=== PATIENT | male | born 1960 ===

== ENCOUNTER 2018-03-15 11:25 | Inpatient (IN) | payer OTHER ==
[2018-03-15 11:40] VITALS: BMI 31.6
--- NOTE | 2018-03-15 12:21 | ED PDOC ---
HPI: Hypertension/Hypotension Time Seen by Provider: 03/15/18 11:46 Chief Complaint (Nursing): High Blood Pressure History Per: Patient, Other Associated Symptoms: Chest Pain (right sided x 1-2 months), Dyspnea Additional Complaint(s): This is a 57 yo male patient from the [facility] clinic who is sent here for evaluation of bradycardia that has been present for 1-2 months. He c/o of right sided chest pain for the same duration and has been working as usual without complaints. He has been referred to Dr. Charles' office for eval but he has not made it yet. Past Medical History Reviewed: Historical Data, Nursing Documentation, Vital Signs Vital Signs: Last Vital Signs Temp 98.7 F 03/15/18 11:39 Pulse 40 L 03/15/18 12:02 Resp 18 03/15/18 11:51 BP 154/91 H 03/15/18 12:02 Pulse Ox 95 03/15/18 11:51 - Medical History PMH: HTN, Hypercholesterolemia - Surgical History Surgical History: No Surg Hx - Family History Family History: States: No Known Family Hx - Living Arrangements Living Arrangements: With Family - Social History Current smoker - smoking cessation education provided: No Alcohol: Social Drugs: Denies - Home Medications Home Medications: Ambulatory Orders Medication Instructions Recorded Aspirin 03/15/18 Atorvastatin [Lipitor] 03/15/18 Chlorthalidone [Hygroton] 03/15/18 Enalapril Maleate [Vasotec] 03/15/18 - Allergies Allergies/Adverse Reactions: Allergies Allergy/AdvReac Type Severity Reaction Status Date / Time No Known Allergies Allergy Verified 03/15/18 11:51 Review of Systems ROS Statement: Except As Marked, All Systems Reviewed And Found Negative Constitutional: Negative for: Fever, Chills Cardiovascular: Positive for: Chest Pain. Negative for: Palpitations, Orthopnea , Paroxysmal Noc. Dyspnea, Edema, Light Headedness Respiratory: Negative for: Cough, Shortness of Breath Physical Exam - Reviewed Nursing Documentation Reviewed: Yes Vital Signs Reviewed: Yes - Physical Exam Appears: Positive for: Well, Non-toxic, No Acute Distress Head Exam: Positive for: ATRAUMATIC, NORMAL INSPECTION, NORMOCEPHALIC Skin: Positive for: Normal Color, Warm, DRY Eye Exam: Positive for: EOMI, Normal appearance, PERRL ENT: Positive for: Normal ENT Inspection Neck: Positive for: Normal, Painless ROM Cardiovascular/Chest: Positive for: Regular Rate, Rhythm Respiratory: Positive for: CNT, Normal Breath Sounds Gastrointestinal/Abdominal: Positive for: Normal Exam, Soft Back: Positive for: Normal Inspection Extremity: Positive for: Normal ROM Neurologic/Psych: Positive for: Alert, Oriented - Laboratory Results Result Diagrams: 03/15/18 13:00 03/15/18 13:00 - ECG ECG: Positive for: Viewed By Me ECG Rhythm: Positive for: Sinus Bradycardia. Negative for: 1st Degree Heart Block, 2nd Degree Heart Block Mobitz I, 2nd Degree Heart Block Mobitz II, 3rd Degree Heart Block O2 Sat by Pulse Oximetry: 95 (RA) Pulse Ox Interpretation: Normal Medical Decision Making Medical Decision Making: Time: 1216 Plan: -- EKG -- CMP -- Magnesium -- Phosphorus -- TSH -- Troponin I -- ED Urine Dipstick -- EKG ED -- CBC with differentials -- PTT -- Prothromin Time -- Chest XRay One View -- Glucose, POC Routine -- IV Insertion Time: 1256 CHEST X-RAY RESULTS FINDINGS: LUNGS: Clear. PLEURA: No pneumothorax or pleural fluid seen. CARDIOVASCULAR: Atherosclerotic aortic calcifications. Cardiomediastinal silhouette enlarged. OSSEOUS STRUCTURES: Degenerative changes. VISUALIZED UPPER ABDOMEN: Normal. OTHER FINDINGS: None. IMPRESSION: No active disease. Time: 1300 Plan: -- CMP -- Magnesium -- Phosphorus -- TSH -- Troponin -- CBC with differentials -- PTT -- Prothrombin Time -- Sodium Chloride IV 1000 mls/hr Scribe Attestation: Documented by Darcy Rasmussen, acting as a scribe for Dr. Kamari MD. Provider Scribe Attestation: All medical record entries made by the Scribe were at my direction and personally dictated by me. I have reviewed the chart and agree that the record accurately reflects my personal performance of the history, physical exam, medical decision making, and the department course for this patient. I have also personally directed, reviewed, and agree with the discharge instructions and disposition. 2.30p - patient has been persistently bradycardic. Since he has not been able to get to cardiology (Dr. Charles), will admit to medical service. Disposition - Clinical Impression Clinical Impression: Bradycardia, Chest pain - Patient ED Disposition Is Patient to be Admitted: Yes Doctor Will See Patient In The: Hospital - Disposition Disposition: Transfer of Care Disposition Time: 14:30 Condition: FAIR Instructions: Bradycardia, Chest Pain Forms: [facility] (German) - POA Present On Arrival: None
--- NOTE | 2018-03-15 12:57 | RAD ---
PROCEDURE: CHEST RADIOGRAPH, 1 VIEW HISTORY: cp COMPARISON: None available. FINDINGS: LUNGS: Clear. PLEURA: No pneumothorax or pleural fluid seen. CARDIOVASCULAR: Atherosclerotic aortic calcifications. Cardiomediastinal silhouette enlarged. OSSEOUS STRUCTURES: Degenerative changes. VISUALIZED UPPER ABDOMEN: Normal. OTHER FINDINGS: None. IMPRESSION: No active disease.
[2018-03-15] MEDS ORDERED: Sodium Chloride 0.9% 1,000 ML IV STA (13:03)
[2018-03-15 13:11] LABS: BASO % 0.4 % (0.0-2.0); EOS # 0.1 K/uL (0.0-0.7); EOS % 1.1 % (0.0-4.0); HEMOGLOBIN 13.7 g/dL (12.0-18.0); LYMPH # 2.2 K/uL (1.0-4.3); MEAN CELL VOLUME 88.5 fl (80.0-94.0); MEAN CORPUSCULAR HEMOGLOBIN 29.4 pg (27.0-31.0); MEAN CORPUSCULAR HGB CONC 33.2 g/dL (33.0-37.0); MEAN PLATELET VOLUME 8.6 fl (7.2-11.7); MONO # 0.4 K/uL (0.0-0.8); MONO % 8.1 % (0.0-10.0); NEUT % 42.4 % (50.0-75.0); NRBC % 0.1 % (0.0-0.0); RBC 4.67 Mil/uL (4.40-5.90); RED CELL DISTRIBUTION WIDTH 13.6 % (11.5-14.5); WHITE BLOOD COUNT 4.6 K/uL (4.8-10.8)
[2018-03-15 13:25] LABS: INR 1.1 (0.9-1.2); PARTIAL THROMBOPLASTIN TIME 30.8 Seconds (25.6-37.1); PROTHROMBIN TIME 12.6 Seconds (9.8-13.1)
[2018-03-15 13:26] LABS: ALB/GLOB RATIO 1.4 (1.0-2.1); ALBUMIN 4.4 g/dL (3.5-5.0); ALT/SGPT 40 U/L (21-72); AST/SGOT 28 U/L (17-59); BLOOD UREA NITROGEN 18 mg/dl (9-20); CALCIUM 9.4 mg/dL (8.4-10.2); GFR AFRICAN-AMERICAN > 60; GFR NON-AFRICAN AMERICAN > 60
--- NOTE | 2018-03-15 15:29 | CP.PCM.HP ---
History of Present Illness - History of Present Illness History of Present Illness: 57 yo male with history of HTN and HLD sent here for evaluation and management because of severe bradycardia associated with dizziness, generalized weakness and on and off left sided chest pain since 2 months ago. Patient was referred to Dr Charles (zipper repairer) who was not able to see him today so he was sent here. Present on Admission - Present on Admission Any Indicators Present on Admission: No History of DVT/PE: No History of Uncontrolled Diabetes: No Urinary Catheter: No Decubitus Ulcer Present: No Review of Systems - Review of Systems All systems: reviewed and no additional remarkable complaints except (aside from those mentioned above, 12 point system review were negative by me) Past Patient History - Tetanus Immunizations Tetanus Immunization: Unknown - Past Medical History & Family History Past Medical History?: Yes - Past Social History Smoking Status: Never Smoked Chewing Tobacco Use: No Cigar Use: No Alcohol: Social Drugs: Denies Home Situation {Lives}: With Family - CARDIAC Hx Hypercholesterolemia: Yes Hx Hypertension: Yes - PSYCHIATRIC Hx Substance Use: No - SURGICAL HISTORY Hx Surgeries: No - ANESTHESIA Hx Anesthesia: No Meds Allergies/Adverse Reactions: Allergies Allergy/AdvReac Type Severity Reaction Status Date / Time No Known Allergies Allergy Verified 03/15/18 11:51 Physical Exam - Constitutional Appears: No Acute Distress - Head Exam Head Exam: ATRAUMATIC - Eye Exam Eye Exam: absent: Scleral icterus - ENT Exam ENT Exam: Mucous Membranes Moist - Neck Exam Neck exam: Negative for: Meningismus - Respiratory Exam Respiratory Exam: Decreased Breath Sounds. absent: Prolonged Expiratory Phase, Rales, Rhonchi, Wheezes, Respiratory Distress - Cardiovascular Exam Cardiovascular Exam: Bradycardia. absent: Diastolic murmur, Systolic Murmur - GI/Abdominal Exam GI & Abdominal Exam: Soft. absent: Tenderness - Rectal Exam Rectal Exam: Deferred - Extremities Exam Extremities exam: Negative for: calf tenderness, pedal edema - Back Exam Back exam: NORMAL INSPECTION - Neurological Exam Neurological exam: Alert, Oriented x3 - Psychiatric Exam Psychiatric exam: Normal Affect - Skin Skin Exam: Dry, Intact Results - Vital Signs Recent Vital Signs: Last Vital Signs Temp 98.7 F 03/15/18 11:39 Pulse 38 L 03/15/18 13:45 Resp 18 03/15/18 13:45 BP 144/90 03/15/18 13:45 Pulse Ox 95 03/15/18 14:45 - Labs Result Diagrams: 03/15/18 13:00 03/15/18 13:00 Labs: Laboratory Results - last 24 hr 03/15/18 03/15/18 03/15/18 11:51 13:00 13:00 WBC 4.6 L RBC 4.67 Hgb 13.7 Hct 41.3 MCV 88.5 MCH 29.4 MCHC 33.2 RDW 13.6 Plt Count 232 MPV 8.6 Neut % (Auto) 42.4 L Lymph % (Auto) 48.0 H [place] % (Auto) 8.1 Eos % (Auto) 1.1 Baso % (Auto) 0.4 Neut # (Auto) 2.0 Lymph # (Auto) 2.2 [place] # (Auto) 0.4 Eos # (Auto) 0.1 Baso # (Auto) 0.0 PT INR APTT Sodium 143 Potassium 3.8 Chloride 102 Carbon Dioxide 29 Anion Gap 16 BUN 18 Creatinine 0.8 Est GFR ( Amer) > 60 Est GFR (Non-Af Amer) > 60 POC Glucose (mg/dL) 84 Random Glucose 82 Calcium 9.4 Phosphorus 3.1 Magnesium 2.0 Total Bilirubin 1.1 AST 28 ALT 40 Alkaline Phosphatase 66 Troponin I < 0.0120 Total Protein 7.4 Albumin 4.4 Globulin 3.0 Albumin/Globulin Ratio 1.4 TSH 3rd Generation 0.53 03/15/18 13:00 WBC RBC Hgb Hct MCV MCH MCHC RDW Plt Count MPV Neut % (Auto) Lymph % (Auto) [place] % (Auto) Eos % (Auto) Baso % (Auto) Neut # (Auto) Lymph # (Auto) [place] # (Auto) Eos # (Auto) Baso # (Auto) PT 12.6 INR 1.1 APTT 30.8 Sodium Potassium Chloride Carbon Dioxide Anion Gap BUN Creatinine Est GFR ( Amer) Est GFR (Non-Af Amer) POC Glucose (mg/dL) Random Glucose Calcium Phosphorus Magnesium Total Bilirubin AST ALT Alkaline Phosphatase Troponin I Total Protein Albumin Globulin Albumin/Globulin Ratio TSH 3rd Generation Assessment & Plan - Assessment and Plan (Free Text) Assessment: 57 yo male with history of HTN and HLD sent here for evaluation and management because of severe bradycardia associated with dizziness, generalized weakness and on and off left sided chest pain since 2 months ago. Patient was referred to Dr Charles (zipper repairer) who was not able to see him today so he was sent here. 1. Severe Bradycardia place on observation in telemetry serial Troponin and EKG ECHO cardiology consult with Dr Charles 2. HTN BP stable continue Vasotec 20mg PO daily 3. HLD lipid profile Lipitor 10mg PO daily 4. DVT prophylaxis Lovenox 40mg SC daily
--- NOTE | 2018-03-15 17:42 | CARD ---
APPROVED REPORT EKG Measurement Heart [id number] <Conclusion> Marked sinus bradycardia Nonspecific intraventricular block Abnormal ECG
[2018-03-16 03:26] LABS: LDL CHOLESTEROL 105 mg/dL (0-129)
[2018-03-16 06:45] LABS: BASO % 0.6 % (0.0-2.0); EOS # 0.1 K/uL (0.0-0.7); EOS % 1.7 % (0.0-4.0); HEMOGLOBIN 13.7 g/dL (12.0-18.0); LYMPH # 2.6 K/uL (1.0-4.3); LYMPH % 51.1 % (20.0-40.0); MEAN CELL VOLUME 89.3 fl (80.0-94.0); MEAN CORPUSCULAR HEMOGLOBIN 29.5 pg (27.0-31.0); MEAN CORPUSCULAR HGB CONC 33.1 g/dL (33.0-37.0); MEAN PLATELET VOLUME 8.4 fl (7.2-11.7); MONO # 0.4 K/uL (0.0-0.8); MONO % 8.5 % (0.0-10.0); NEUT # 1.9 K/uL (1.8-7.0); NEUT % 38.1 % (50.0-75.0); NRBC % 0.2 % (0.0-0.0); RBC 4.64 Mil/uL (4.40-5.90); RED CELL DISTRIBUTION WIDTH 14.1 % (11.5-14.5)
[2018-03-16 06:59] LABS: BLOOD UREA NITROGEN 23 mg/dl (9-20); CALCIUM 9.1 mg/dL (8.4-10.2); GFR AFRICAN-AMERICAN > 60; GFR NON-AFRICAN AMERICAN > 60; HDL CHOLESTEROL 36 MG/DL (30-70)
[2018-03-16] MEDS: Enoxaparin 40 mg Syringe SC SCH (08:22)
[2018-03-16] MEDS: Pantoprazole 40 mg EC Tab PO SCH (08:23)
--- NOTE | 2018-03-16 08:40 | CP.PCM.CON ---
Past Patient History - Tetanus Immunizations Tetanus Immunization: Unknown - Past Medical History & Family History Past Medical History?: Yes - Past Social History Smoking Status: Never Smoked - CARDIAC Hx Cardiac Disorders: Yes - PULMONARY Hx Respiratory Disorders: No - NEUROLOGICAL Hx Neurological Disorder: No - HEENT Hx HEENT Problems: No - RENAL Hx Chronic Kidney Disease: No - ENDOCRINE/METABOLIC Hx Endocrine Disorders: No - HEMATOLOGICAL/ONCOLOGICAL Hx Blood Disorders: No - INTEGUMENTARY Hx Dermatological Problems: No - MUSCULOSKELETAL/RHEUMATOLOGICAL Hx Musculoskeletal Disorders: No - GASTROINTESTINAL Hx Gastrointestinal Disorders: No - GENITOURINARY/GYNECOLOGICAL Hx Genitourinary Disorders: No - PSYCHIATRIC Hx Psychophysiologic Disorder: No - SURGICAL HISTORY Hx Surgeries: Yes Hx Tonsillectomy: Yes - ANESTHESIA Hx Anesthesia: No Meds Allergies/Adverse Reactions: Allergies Allergy/AdvReac Type Severity Reaction Status Date / Time No Known Allergies Allergy Verified 03/15/18 11:51 - Medications Medications: Current Medications Aspirin (Aspirin Chewable) 81 mg PO DAILY [facility] Last Admin: 03/16/18 08:21 Dose: 81 mg Atorvastatin Calcium (Lipitor) 10 mg PO DAILY [facility] Last Admin: 03/16/18 08:22 Dose: 10 mg Docusate Sodium (Colace) 100 mg PO BID PRN PRN Reason: Constipation Enalapril Maleate (Vasotec) 20 mg PO DAILY [facility] Last Admin: 03/16/18 08:23 Dose: 20 mg Enoxaparin Sodium (Lovenox) 40 mg SC DAILY [facility] PRN Reason: Protocol Last Admin: 03/16/18 08:22 Dose: 40 mg Pantoprazole Sodium (Protonix Ec Tab) 40 mg PO DAILY [facility] Last Admin: 03/16/18 08:23 Dose: 40 mg Results - Vital Signs Recent Vital Signs: Last Vital Signs Temp 97.9 F 03/16/18 08:32 Pulse 36 L 03/16/18 08:32 Resp 16 03/16/18 08:32 BP 142/73 03/16/18 08:32 Pulse Ox 97 03/16/18 08:32 - Labs Result Diagrams: 03/16/18 05:00 03/16/18 02:53 Labs: Laboratory Results - last 24 hr 03/15/18 03/15/18 03/15/18 11:51 13:00 13:00 WBC 4.6 L RBC 4.67 Hgb 13.7 Hct 41.3 MCV 88.5 MCH 29.4 MCHC 33.2 RDW 13.6 Plt Count 232 MPV 8.6 Neut % (Auto) 42.4 L Lymph % (Auto) 48.0 H [place] % (Auto) 8.1 Eos % (Auto) 1.1 Baso % (Auto) 0.4 Neut # (Auto) 2.0 Lymph # (Auto) 2.2 [place] # (Auto) 0.4 Eos # (Auto) 0.1 Baso # (Auto) 0.0 PT INR APTT Sodium 143 Potassium 3.8 Chloride 102 Carbon Dioxide 29 Anion Gap 16 BUN 18 Creatinine 0.8 Est GFR ( Amer) > 60 Est GFR (Non-Af Amer) > 60 POC Glucose (mg/dL) 84 Random Glucose 82 Calcium 9.4 Phosphorus 3.1 Magnesium 2.0 Total Bilirubin 1.1 AST 28 ALT 40 Alkaline Phosphatase 66 Troponin I < 0.0120 Total Protein 7.4 Albumin 4.4 Globulin 3.0 Albumin/Globulin Ratio 1.4 Triglycerides Cholesterol LDL Cholesterol Direct HDL Cholesterol TSH 3rd Generation 0.53 03/15/18 03/15/18 03/16/18 13:00 18:04 02:53 WBC RBC Hgb Hct MCV MCH MCHC RDW Plt Count MPV Neut % (Auto) Lymph % (Auto) [place] % (Auto) Eos % (Auto) Baso % (Auto) Neut # (Auto) Lymph # (Auto) [place] # (Auto) Eos # (Auto) Baso # (Auto) PT 12.6 INR 1.1 APTT 30.8 Sodium 139 Potassium 3.7 Chloride 101 Carbon Dioxide 26 Anion Gap 16 BUN 23 H Creatinine 0.9 Est GFR ( Amer) > 60 Est GFR (Non-Af Amer) > 60 POC Glucose (mg/dL) Random Glucose 109 Calcium 9.1 Phosphorus Magnesium Total Bilirubin AST ALT Alkaline Phosphatase Troponin I 0.0120 < 0.0120 Total Protein Albumin Globulin Albumin/Globulin Ratio Triglycerides 268 H Cholesterol 194 LDL Cholesterol Direct 105 HDL Cholesterol 36 TSH 3rd Generation 1.11 03/16/18 05:00 WBC 5.0 RBC 4.64 Hgb 13.7 Hct 41.5 MCV 89.3 MCH 29.5 MCHC 33.1 RDW 14.1 Plt Count 233 MPV 8.4 Neut % (Auto) 38.1 L Lymph % (Auto) 51.1 H [place] % (Auto) 8.5 Eos % (Auto) 1.7 Baso % (Auto) 0.6 Neut # (Auto) 1.9 Lymph # (Auto) 2.6 [place] # (Auto) 0.4 Eos # (Auto) 0.1 Baso # (Auto) 0.0 PT INR APTT Sodium Potassium Chloride Carbon Dioxide Anion Gap BUN Creatinine Est GFR ( Amer) Est GFR (Non-Af Amer) POC Glucose (mg/dL) Random Glucose Calcium Phosphorus Magnesium Total Bilirubin AST ALT Alkaline Phosphatase Troponin I Total Protein Albumin Globulin Albumin/Globulin Ratio Triglycerides Cholesterol LDL Cholesterol Direct HDL Cholesterol TSH 3rd Generation
--- NOTE | 2018-03-16 08:40 | CP.PCM.CON ---
History of Present Illness - History of Present Illness History of Present Illness: patient seen examined. full consutl to follow. has dizziness and dsypnea on exertion, along with chest pain. was getting echocardiogram yesterday and became lighheaded. heart rate in the 30s. currently no symptoms at rest, but has exertional symptoms. EF 50-55%. Recommend nuclear exercise stress test to assess for ischemia. TSH. If no ischemia, consider EP eval for PPM due to symptomatic bradycardia. Past Patient History - Tetanus Immunizations Tetanus Immunization: Unknown - Past Medical History & Family History Past Medical History?: Yes - Past Social History Smoking Status: Never Smoked - CARDIAC Hx Cardiac Disorders: Yes - PULMONARY Hx Respiratory Disorders: No - NEUROLOGICAL Hx Neurological Disorder: No - HEENT Hx HEENT Problems: No - RENAL Hx Chronic Kidney Disease: No - ENDOCRINE/METABOLIC Hx Endocrine Disorders: No - HEMATOLOGICAL/ONCOLOGICAL Hx Blood Disorders: No - INTEGUMENTARY Hx Dermatological Problems: No - MUSCULOSKELETAL/RHEUMATOLOGICAL Hx Musculoskeletal Disorders: No - GASTROINTESTINAL Hx Gastrointestinal Disorders: No - GENITOURINARY/GYNECOLOGICAL Hx Genitourinary Disorders: No - PSYCHIATRIC Hx Psychophysiologic Disorder: No - SURGICAL HISTORY Hx Surgeries: Yes Hx Tonsillectomy: Yes - ANESTHESIA Hx Anesthesia: No Meds Allergies/Adverse Reactions: Allergies Allergy/AdvReac Type Severity Reaction Status Date / Time No Known Allergies Allergy Verified 03/15/18 11:51 - Medications Medications: Current Medications Aspirin (Aspirin Chewable) 81 mg PO DAILY [facility] Last Admin: 03/16/18 08:21 Dose: 81 mg Atorvastatin Calcium (Lipitor) 10 mg PO DAILY [facility] Last Admin: 03/16/18 08:22 Dose: 10 mg Docusate Sodium (Colace) 100 mg PO BID PRN PRN Reason: Constipation Enalapril Maleate (Vasotec) 20 mg PO DAILY [facility] Last Admin: 03/16/18 08:23 Dose: 20 mg Enoxaparin Sodium (Lovenox) 40 mg SC DAILY [facility] PRN Reason: Protocol Last Admin: 03/16/18 08:22 Dose: 40 mg Pantoprazole Sodium (Protonix Ec Tab) 40 mg PO DAILY [facility] Last Admin: 03/16/18 08:23 Dose: 40 mg Results - Vital Signs Recent Vital Signs: Last Vital Signs Temp 97.9 F 03/16/18 08:32 Pulse 36 L 03/16/18 08:32 Resp 16 03/16/18 08:32 BP 142/73 03/16/18 08:32 Pulse Ox 97 03/16/18 08:32 - Labs Result Diagrams: 03/16/18 05:00 03/16/18 02:53 Labs: Laboratory Results - last 24 hr 03/15/18 03/15/18 03/15/18 11:51 13:00 13:00 WBC 4.6 L RBC 4.67 Hgb 13.7 Hct 41.3 MCV 88.5 MCH 29.4 MCHC 33.2 RDW 13.6 Plt Count 232 MPV 8.6 Neut % (Auto) 42.4 L Lymph % (Auto) 48.0 H [place] % (Auto) 8.1 Eos % (Auto) 1.1 Baso % (Auto) 0.4 Neut # (Auto) 2.0 Lymph # (Auto) 2.2 [place] # (Auto) 0.4 Eos # (Auto) 0.1 Baso # (Auto) 0.0 PT INR APTT Sodium 143 Potassium 3.8 Chloride 102 Carbon Dioxide 29 Anion Gap 16 BUN 18 Creatinine 0.8 Est GFR ( Amer) > 60 Est GFR (Non-Af Amer) > 60 POC Glucose (mg/dL) 84 Random Glucose 82 Calcium 9.4 Phosphorus 3.1 Magnesium 2.0 Total Bilirubin 1.1 AST 28 ALT 40 Alkaline Phosphatase 66 Troponin I < 0.0120 Total Protein 7.4 Albumin 4.4 Globulin 3.0 Albumin/Globulin Ratio 1.4 Triglycerides Cholesterol LDL Cholesterol Direct HDL Cholesterol TSH 3rd Generation 0.53 03/15/18 03/15/18 03/16/18 13:00 18:04 02:53 WBC RBC Hgb Hct MCV MCH MCHC RDW Plt Count MPV Neut % (Auto) Lymph % (Auto) [place] % (Auto) Eos % (Auto) Baso % (Auto) Neut # (Auto) Lymph # (Auto) [place] # (Auto) Eos # (Auto) Baso # (Auto) PT 12.6 INR 1.1 APTT 30.8 Sodium 139 Potassium 3.7 Chloride 101 Carbon Dioxide 26 Anion Gap 16 BUN 23 H Creatinine 0.9 Est GFR ( Amer) > 60 Est GFR (Non-Af Amer) > 60 POC Glucose (mg/dL) Random Glucose 109 Calcium 9.1 Phosphorus Magnesium Total Bilirubin AST ALT Alkaline Phosphatase Troponin I 0.0120 < 0.0120 Total Protein Albumin Globulin Albumin/Globulin Ratio Triglycerides 268 H Cholesterol 194 LDL Cholesterol Direct 105 HDL Cholesterol 36 TSH 3rd Generation 1.11 03/16/18 05:00 WBC 5.0 RBC 4.64 Hgb 13.7 Hct 41.5 MCV 89.3 MCH 29.5 MCHC 33.1 RDW 14.1 Plt Count 233 MPV 8.4 Neut % (Auto) 38.1 L Lymph % (Auto) 51.1 H [place] % (Auto) 8.5 Eos % (Auto) 1.7 Baso % (Auto) 0.6 Neut # (Auto) 1.9 Lymph # (Auto) 2.6 [place] # (Auto) 0.4 Eos # (Auto) 0.1 Baso # (Auto) 0.0 PT INR APTT Sodium Potassium Chloride Carbon Dioxide Anion Gap BUN Creatinine Est GFR ( Amer) Est GFR (Non-Af Amer) POC Glucose (mg/dL) Random Glucose Calcium Phosphorus Magnesium Total Bilirubin AST ALT Alkaline Phosphatase Troponin I Total Protein Albumin Globulin Albumin/Globulin Ratio Triglycerides Cholesterol LDL Cholesterol Direct HDL Cholesterol TSH 3rd Generation
--- NOTE | 2018-03-16 12:26 | CP.PCM.PN ---
Subjective - Date & Time of Evaluation Date of Evaluation: 03/16/18 Time of Evaluation: 11:00 - Subjective Subjective: Patient seen and examined. Still bradycardic with rate running between 39-41 and with right sided chest pain. Denied SOB. Objective - Vital Signs/Intake and Output Vital Signs (last 24 hours): Temp Pulse Resp BP Pulse Ox 97.9 F 46 L 16 142/73 97 03/16/18 08:32 03/16/18 09:00 03/16/18 08:32 03/16/18 08:32 03/16/18 08:32 Intake and Output: 03/16/18 03/16/18 06:59 18:59 Intake Total 1000 Balance 1000 - Medications Medications: Current Medications Aspirin (Aspirin Chewable) 81 mg PO DAILY [facility] Last Admin: 03/16/18 08:21 Dose: 81 mg Atorvastatin Calcium (Lipitor) 10 mg PO DAILY [facility] Last Admin: 03/16/18 08:22 Dose: 10 mg Docusate Sodium (Colace) 100 mg PO BID PRN PRN Reason: Constipation Enalapril Maleate (Vasotec) 20 mg PO DAILY [facility] Last Admin: 03/16/18 08:23 Dose: 20 mg Enoxaparin Sodium (Lovenox) 40 mg SC DAILY [facility] PRN Reason: Protocol Last Admin: 03/16/18 08:22 Dose: 40 mg Pantoprazole Sodium (Protonix Ec Tab) 40 mg PO DAILY [facility] Last Admin: 03/16/18 08:23 Dose: 40 mg - Labs Labs: 03/16/18 05:00 03/16/18 02:53 PT 12.6 Seconds (9.8-13.1) 03/15/18 13:00 INR 1.1 (0.9-1.2) 03/15/18 13:00 APTT 30.8 Seconds (25.6-37.1) 03/15/18 13:00 - Constitutional Appears: No Acute Distress - Head Exam Head Exam: ATRAUMATIC - Eye Exam Eye Exam: absent: Scleral icterus - ENT Exam ENT Exam: Mucous Membranes Moist - Neck Exam Neck Exam: absent: Meningismus - Respiratory Exam Respiratory Exam: absent: Chest Wall Tenderness, Rales, Rhonchi, Wheezes, Respiratory Distress - Cardiovascular Exam Cardiovascular Exam: Bradycardia - GI/Abdominal Exam GI & Abdominal Exam: Soft. absent: Tenderness - Rectal Exam Rectal Exam: Deferred - Extremities Exam Extremities Exam: absent: Calf Tenderness, Pedal Edema - Back Exam Back Exam: absent: tenderness - Psychiatric Exam Psychiatric exam: Normal Affect - Skin Skin Exam: Dry, Intact Assessment and Plan - Assessment and Plan (Free Text) Assessment: 57 yo male with history of HTN and HLD sent here for evaluation and management because of severe bradycardia associated with dizziness, generalized weakness and on and off left sided chest pain since 2 months ago. Patient was referred to Dr Charles (customer service technician) who was not able to see him today so he was sent here. 1. Severe Bradycardia HR still running low with right sided chest pain 3 sets of Troponin negative for ischemic events ECHO: pending Nuclear Stress Test ordered for tomorrow serum Ddimer Dr Su called for EP evaluation, message left cardiology consult with Dr Charles appreciated 2. HTN BP stable continue Vasotec 20mg PO daily 3. HLD Lipitor 10mg PO daily 4. DVT prophylaxis Lovenox 40mg SC daily
[2018-03-17] MEDS: Enoxaparin 40 mg Syringe SC SCH (10:46)
[2018-03-17] MEDS: Pantoprazole 40 mg EC Tab PO SCH (10:46)
--- NOTE | 2018-03-17 12:05 | CP.PCM.PN ---
Subjective - Date & Time of Evaluation Date of Evaluation: 03/17/18 Time of Evaluation: 10:30 - Subjective Subjective: Patient seen and examined. Complained of low back pain today. Denied chest pain. Stress test cancelled because of weakness and bradycardia. Objective - Vital Signs/Intake and Output Vital Signs (last 24 hours): Temp Pulse Resp BP Pulse Ox 98.2 F 41 L 20 125/72 96 03/17/18 08:31 03/17/18 08:31 03/17/18 08:31 03/17/18 08:31 03/17/18 08:31 - Medications Medications: Current Medications Acetaminophen (Tylenol 325mg Tab) 650 mg PO Q4 PRN PRN Reason: Pain, Mild (1-3) Last Admin: 03/17/18 11:22 Dose: 650 mg Aspirin (Aspirin Chewable) 81 mg PO DAILY [facility] Last Admin: 03/17/18 10:46 Dose: 81 mg Atorvastatin Calcium (Lipitor) 10 mg PO DAILY [facility] Last Admin: 03/17/18 10:46 Dose: 10 mg Docusate Sodium (Colace) 100 mg PO BID PRN PRN Reason: Constipation Enalapril Maleate (Vasotec) 20 mg PO DAILY [facility] Last Admin: 03/17/18 11:20 Dose: 20 mg Enoxaparin Sodium (Lovenox) 40 mg SC DAILY [facility] PRN Reason: Protocol Last Admin: 03/17/18 10:46 Dose: 40 mg Pantoprazole Sodium (Protonix Ec Tab) 40 mg PO DAILY [facility] Last Admin: 03/17/18 10:46 Dose: 40 mg - Labs Labs: 03/16/18 05:00 03/16/18 02:53 PT 12.6 Seconds (9.8-13.1) 03/15/18 13:00 INR 1.1 (0.9-1.2) 03/15/18 13:00 APTT 30.8 Seconds (25.6-37.1) 03/15/18 13:00 - Constitutional Appears: No Acute Distress - Head Exam Head Exam: ATRAUMATIC - Eye Exam Eye Exam: absent: Scleral icterus - ENT Exam ENT Exam: Mucous Membranes Moist - Neck Exam Neck Exam: absent: Meningismus - Respiratory Exam Respiratory Exam: absent: Rales, Rhonchi, Wheezes, Respiratory Distress - Cardiovascular Exam Cardiovascular Exam: Bradycardia - GI/Abdominal Exam GI & Abdominal Exam: Soft. absent: Tenderness - Rectal Exam Rectal Exam: Deferred - Extremities Exam Extremities Exam: absent: Calf Tenderness, Pedal Edema - Back Exam Back Exam: absent: tenderness - Neurological Exam Neurological Exam: Alert, Oriented x3 - Psychiatric Exam Psychiatric exam: Normal Affect - Skin Skin Exam: Dry, Intact Assessment and Plan - Assessment and Plan (Free Text) Assessment: 57 yo male with history of HTN and HLD sent here for evaluation and management because of severe bradycardia associated with dizziness, generalized weakness and on and off left sided chest pain since 2 months ago. Patient was referred to Dr Charles ([employer]) who was not able to see him today so he was sent here. 1. Severe Bradycardia HR still low stress test cancelled because of bradycardia and weakness ECHO: done but no report yet serum Ddimer: not drawn Dr Lima called for EP evaluation, message was left cardiology consult with Dr Charles appreciated 2. HTN BP stable continue Vasotec 20mg PO daily 3. HLD Lipitor 10mg PO daily 4. DVT prophylaxis Lovenox 40mg SC daily
[2018-03-17 18:46] LABS: SQUAMOUS EPITHIAL < 1 /hpf (0-5); URINE BILIRUBIN NEGATIVE (NEGATIVE); URINE BLOOD NEGATIVE (NEGATIVE); URINE CLARITY CLEAR (Clear); URINE COLOR YELLOW (YELLOW); URINE GLUCOSE (UA) NEG (Normal); URINE LEUKOCYTE ESTERASE NEG Leu/uL (Negative); URINE PROTEIN NEGATIVE (NEGATIVE); URINE UROBILINOGEN 0.2-1.0 mg/dL (0.2-1.0)
--- NOTE | 2018-03-17 19:34 | CP.PCM.PN ---
Subjective - Date & Time of Evaluation Date of Evaluation: 03/17/18 Time of Evaluation: 16:30 - Subjective Subjective: patient feels dizzy with exertion. heart rate remains in the 30s Objective - Vital Signs/Intake and Output Vital Signs (last 24 hours): Temp Pulse Resp BP Pulse Ox 97.5 F L 46 L 18 139/75 98 03/17/18 16:23 03/17/18 16:23 03/17/18 16:23 03/17/18 16:23 03/17/18 16:23 - Medications Medications: Current Medications Acetaminophen (Tylenol 325mg Tab) 650 mg PO Q4 PRN PRN Reason: Pain, Mild (1-3) Last Admin: 03/17/18 11:22 Dose: 650 mg Aspirin (Aspirin Chewable) 81 mg PO DAILY [facility] Last Admin: 03/17/18 10:46 Dose: 81 mg Atorvastatin Calcium (Lipitor) 10 mg PO DAILY [facility] Last Admin: 03/17/18 10:46 Dose: 10 mg Docusate Sodium (Colace) 100 mg PO BID PRN PRN Reason: Constipation Enalapril Maleate (Vasotec) 20 mg PO DAILY [facility] Last Admin: 03/17/18 11:20 Dose: 20 mg Pantoprazole Sodium (Protonix Ec Tab) 40 mg PO DAILY [facility] Last Admin: 03/17/18 10:46 Dose: 40 mg - Labs Labs: 03/16/18 05:00 03/16/18 02:53 PT 12.6 Seconds (9.8-13.1) 03/15/18 13:00 INR 1.1 (0.9-1.2) 03/15/18 13:00 APTT 30.8 Seconds (25.6-37.1) 03/15/18 13:00 - Constitutional Appears: Non-toxic - Head Exam Head Exam: NORMAL INSPECTION - Eye Exam Eye Exam: Normal appearance - ENT Exam ENT Exam: Mucous Membranes Moist - Neck Exam Neck Exam: Full ROM - Respiratory Exam Respiratory Exam: Decreased Breath Sounds - Cardiovascular Exam Cardiovascular Exam: Bradycardia, REGULAR RHYTHM - GI/Abdominal Exam GI & Abdominal Exam: Normal Bowel Sounds - Rectal Exam Rectal Exam: Deferred - Extremities Exam Extremities Exam: absent: Pedal Edema - Back Exam Back Exam: NORMAL INSPECTION - Neurological Exam Neurological Exam: Alert - Psychiatric Exam Psychiatric exam: Normal Affect - Skin Skin Exam: Normal Color Assessment and Plan (1) Bradycardia Assessment & Plan: patient has severe symptomatic bradycardia. recommend PPM patient understands. Dr Lima consulted. for tomorrow. NPO after midnight. Status: Acute
[2018-03-18 06:03] LABS: HEMOGLOBIN 13.7 g/dL (12.0-18.0); MEAN CELL VOLUME 88.3 fl (80.0-94.0); MEAN CORPUSCULAR HEMOGLOBIN 29.7 pg (27.0-31.0); MEAN CORPUSCULAR HGB CONC 33.6 g/dL (33.0-37.0); RBC 4.63 Mil/uL (4.40-5.90); RED CELL DISTRIBUTION WIDTH 13.5 % (11.5-14.5); WHITE BLOOD COUNT 4.6 K/uL (4.8-10.8)
[2018-03-18 06:16] LABS: INR 1.1 (0.9-1.2); PARTIAL THROMBOPLASTIN TIME 30.5 Seconds (25.6-37.1); PROTHROMBIN TIME 12.4 Seconds (9.8-13.1)
--- NOTE | 2018-03-18 06:17 | CON ---
DATE: 03/17/2018 INPATIENT ELECTROPHYSIOLOGY CONSULTATION REASON FOR EVALUATION: 1. Sick sinus syndrome. 2. Dizziness and fatigue. 3. Chest pain. HISTORY OF PRESENT ILLNESS: Mr. Cyrus Holguin is a 57-year-old male with past medical history significant for hypertension and hyperlipidemia who presents to [facility] with complaints of dizziness, generalized weakness, and intermittent chest pain for over the last 2 months which became progressively worsened and he came to the hospital for further evaluation and management. The patient was undergoing cardiac evaluation with Dr. Charles, had undergone 2D echocardiogram at which point the patient was noted to have heart rate in the 30s. The patient was admitted and found to be persistently bradycardic with heart rates in the 40s sometimes as low as 30s with related symptoms of weakness and dizziness. Rhythm appears to be sinus bradycardia. REVIEW OF SYSTEMS: Pertinent positive as I mentioned in the history of present illness, there has been no episodes of syncope. No cough or wheezes. Mild shortness of breath with exertion. The patient denies nausea, vomiting, diarrhea, constipation, heat or cold intolerance, polydipsia, polyphagia, fevers, chills, significant weight changes. Review was conducted via translation mine. PAST SURGICAL HISTORY: Noncontributory. SOCIAL HISTORY: Negative for tobacco, EtOH, or drug abuse. PHYSICAL EXAMINATION: VITAL SIGNS: Temperature is 98.2, pulse rate is 36, blood pressure is 126/64, mean arterial pressure is 84, and respirations are 18. GENERAL: He is a well-developed, well-nourished, and mildly obese male, in no acute distress and able to speak in complete sentences. HEENT: Head is normocephalic and atraumatic. There is no charlene facial asymmetry. NECK: Supple. CHEST: Clear to auscultation bilaterally. CARDIOVASCULAR: Bradycardia. S1 and S2. No S3 or S4. PMI did not appear to be displaced. ABDOMEN: Soft, obese, nontender, and nondistended. Positive bowel sounds. EXTREMITIES: No cyanosis, clubbing, or edema. Peripheral pulses are 2+ and symmetric in bilateral upper and lower extremities. CURRENT MEDICATIONS: On review of current medications; the patient is on aspirin, atorvastatin, docusate sodium which is Colace, enalapril 20 mg p.o. daily, enoxaparin which is given this morning at 10:46, 40 mg subcutaneously, and Protonix 40 mg p.o. daily. LABORATORY DATA: On review of relevant lab work, the patient has a white count of 4.6, H and H of 13.7 and 41.3; and platelets of 232. INR is 1.1 and PT is 12.6. BUN and creatinine is 18 and 0.8. Sodium of 143, potassium of 3.8, calcium is 9.4. and magnesium is 2. H and H of 28 and 40 respectively. Albumin of 4.4. Troponin is less than 0.012 x3. TSH is within normal limits, which was repeated twice. Total cholesterol is high at 268. LDL is 105. EKG which is dated 03/15/2018 shows marked sinus bradycardia at 38 beats per minute, sinus rhythm is noted, P waves are somewhat diminutive size, WI intervals are 130 msec, normal axis across the limb leads, normal R wave progression, nonspecific ST-T waves changes, and QT and QTc is 482 and 383 respectively. ASSESSMENT AND PLAN: 1. Sick sinus syndrome. The patient has marked sinus bradycardia with related symptoms. 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 At this point, we would recommend a permanent pacemaker for chronotropic support. 2. Dizziness and fatigue likely secondary to severe sinus bradycardia of unclear etiology. 3. Chest pain again may be bradycardia related, may require chest pain workup if it persists despite increasing baseline heart rate with the pacemaker. Thank you for allowing me to participate in the care of your patient. Please do not hesitate to call if you have any questions in regards to his care. Anam Lima MD cc: Clarence Charles MD
[2018-03-18] MEDS ORDERED: Midazolam 2 MG/2 ML VIAL ONE (07:37)
[2018-03-18] MEDS ORDERED: Propofol 10 mg/ml Inj (20 ML) ONE ×2 (07:38→09:03)
[2018-03-18] MEDS ORDERED: Lidocaine 1% 5ml Abboject IV ONE (07:39)
[2018-03-18] MEDS ORDERED: Lidocaine 2% Inj (20ml) ONE (07:40)
[2018-03-18] MEDS ORDERED: Lactated Ringer's 1,000 ML IV ONE (07:45)
[2018-03-18] MEDS ORDERED: Liquid Adhesive TOP ONE ×3 (07:51→09:35)
[2018-03-18] MEDS ORDERED: Lidocaine 2% Inj (20ml) IJ ONE (08:36)
[2018-03-18] MEDS ORDERED: Oxycodone/Acetaminophen 5/325 mg Tab PO PRN (09:55)
[2018-03-18] MEDS: Morphine 4 MG/ML VIAL IVP PRN ×2 (10:00→10:12)
[2018-03-18] MEDS ORDERED: Lactated Ringer's 1,000 ML IV SCH (10:00)
--- NOTE | 2018-03-18 10:25 | RAD ---
PROCEDURE: CHEST RADIOGRAPH, 1 VIEW HISTORY: S/P Pacemaker insertion COMPARISON: Chest radiographs 03/15/2018. FINDINGS: LUNGS: There is some crowding of the bronchovascular markings at the medial bases bilaterally but no alveolitis is suspected. An apparent bipolar permanent cardiac pacemaker is identified placed in the interval with the generator the left pectoralis region and 2 leads identified extending into the left subclavian region terminating at the heart. PLEURA: No pneumothorax or pleural fluid seen. CARDIOVASCULAR: Normal. OSSEOUS STRUCTURES: No significant abnormalities. VISUALIZED UPPER ABDOMEN: Normal. OTHER FINDINGS: None. IMPRESSION: Interval pacemaker insertion as discussed above. No pneumothorax bilaterally. Crowding of bronchovascular markings is favored over airspace disease at the medial bases bilaterally.
[2018-03-18] MEDS: Pantoprazole 40 mg EC Tab PO SCH (12:10)
--- NOTE | 2018-03-18 12:29 | RAD ---
PROCEDURE: Fluoroscopy up to 1 hr. HISTORY: PACEMAKER INSERTION COMPARISON: None TECHNIQUE: Standard protocol for this study/examination. FINDINGS: Total fluoroscopic time (continuous mode) utilized during the procedure 0.9 1.3 (seconds). Total exam DLP: (mGy) 31.19 IMPRESSION: Less than 1 hr fluoroscopic time utilized during performance of the procedure.
--- NOTE | 2018-03-18 15:27 | CP.PCM.PN ---
Subjective - Date & Time of Evaluation Date of Evaluation: 03/18/18 Time of Evaluation: 14:00 - Subjective Subjective: Pt seen after he had Pacemaker placement HR in the Tele monitor is now 60 denies CP no SOB minimal pain on site of PM no abd pain Objective - Vital Signs/Intake and Output Vital Signs (last 24 hours): Temp Pulse Resp BP Pulse Ox 98.4 F 61 18 160/93 H 95 03/18/18 11:47 03/18/18 11:47 03/18/18 11:47 03/18/18 11:47 03/18/18 11:47 Intake and Output: 03/18/18 03/18/18 06:59 18:59 Intake Total 900 Balance 900 - Medications Medications: Current Medications Acetaminophen (Tylenol 325mg Tab) 650 mg PO Q4 PRN PRN Reason: Pain, Mild (1-3) Last Admin: 03/17/18 11:22 Dose: 650 mg Aspirin (Aspirin Chewable) 81 mg PO DAILY [facility] Last Admin: 03/18/18 12:19 Dose: 81 mg Atorvastatin Calcium (Lipitor) 10 mg PO DAILY [facility] Last Admin: 03/18/18 12:19 Dose: 10 mg Docusate Sodium (Colace) 100 mg PO BID PRN PRN Reason: Constipation Enalapril Maleate (Vasotec) 20 mg PO DAILY [facility] Last Admin: 03/17/18 11:20 Dose: 20 mg Lactated Ringer's (Lactated Ringer's) 1,000 mls @ 100 mls/hr IV .Q10H [facility] Last Admin: 03/18/18 12:20 Dose: 100 mls/hr Oxycodone/Acetaminophen (Percocet 5/325 Mg Tab) 1 tab PO Q4 PRN PRN Reason: Moderate-Severe (4-10) Stop: 03/21/18 09:56 Pantoprazole Sodium (Protonix Ec Tab) 40 mg PO DAILY [facility] Last Admin: 03/17/18 10:46 Dose: 40 mg - Labs Labs: 03/18/18 05:30 03/16/18 02:53 PT 12.4 Seconds (9.8-13.1) 03/18/18 05:30 INR 1.1 (0.9-1.2) 03/18/18 05:30 APTT 30.5 Seconds (25.6-37.1) 03/18/18 05:30 - Constitutional Appears: No Acute Distress - Head Exam Head Exam: NORMAL INSPECTION, NORMOCEPHALIC - Eye Exam Eye Exam: EOMI, Normal appearance, PERRL Pupil Exam: NORMAL ACCOMODATION - ENT Exam ENT Exam: Mucous Membranes Moist, Normal External Ear Exam - Neck Exam Neck Exam: Full ROM. absent: Meningismus - Respiratory Exam Respiratory Exam: NORMAL BREATHING PATTERN. absent: Respiratory Distress - Cardiovascular Exam Cardiovascular Exam: REGULAR RHYTHM, +S1, +S2 Additional comments: Left Pacemaker - GI/Abdominal Exam GI & Abdominal Exam: Soft, Normal Bowel Sounds. absent: Tenderness - Extremities Exam Extremities Exam: Full ROM, Normal Capillary Refill. absent: Calf Tenderness, Pedal Edema - Back Exam Back Exam: absent: CVA tenderness (L), CVA tenderness (R) - Neurological Exam Neurological Exam: Alert, Awake, CN II-XII Intact, Oriented x3 Neuro motor strength exam: Left Upper Extremity: 5, Right Upper Extremity: 5, Left Lower Extremity: 5, Right Lower Extremity: 5 - Psychiatric Exam Psychiatric exam: Normal Affect, Normal Mood - Skin Skin Exam: Dry, Normal Color, Warm Assessment and Plan (1) Sick sinus syndrome Status: Acute (2) S/P cardiac pacemaker procedure Status: Acute (3) HTN (hypertension) Status: Chronic (4) DVT prophylaxis Status: Acute - Assessment and Plan (Free Text) Assessment: 57y Male pt with hx of HTN , Hyperlipidemia , was sent in by his PMD due to Bradycardia. His HR is in the 30's . (1) Sick sinus syndrome S/P cardiac pacemaker procedure Pt's HR in the 30's EP consulted - Dr Lima - Pacemaker placed Shoulder immobilizer for now Pain mgt check ECHO (2) HTN (hypertension) Status: Chronic cont Vasotec 3. Hyperlipidemia cont statin (3) DVT prophylaxis Status: Acute start Lovenox in am
--- NOTE | 2018-03-18 20:34 | OP ---
PROCEDURE DATE: 03/18/2018 PREPROCEDURE DIAGNOSES: Sick sinus syndrome and symptomatic bradycardia. PROCEDURE: Implantation with dual-chamber permanent pacemaker. REFERRING PHYSICIAN: Clarence Charles MD SURGEON: Anam Lima MD BRIEF HISTORY: Mr. Cyrus Holguin is a 57-year-old male with a past medical history significant for hypertension and hypercholesterolemia who presents with worsening dyspnea on exertion, dizziness, lightheadedness, and presyncope. He was found to have profound sinus bradycardia with heart rates in the 30s and 40s. The patient was on no AV melecio slowing agents and was benefit from a permanent pacemaker for chronotropic support. Informed consent was received for the procedure as well as for anesthesia, which was performed by Dr. Redmond. DESCRIPTION OF PROCEDURE: Mr. Cyrus Holguin was brought to the OR here at [facility] today 03/18/2018 for implantation of dual-chamber pacemaker. The left pectoral area was draped and prepped in a sterile fashion and a 2% lidocaine solution was injected into the surgical site. A 4.5 cm incision was made two fingerbreadths below the clavicle using blunt dissection and electrocautery. The fascial planes were dissected and cephalic vein was identified itself and cutdown was performed without difficulty. A 0.035 guidewire was inserted via this access point without difficulty and followed under fluoroscopy. A 9-Czech SafeSheath was then inserted over this wire again without difficulty. The right ventricular lead, which is a Medtronic 5076 Capsurefix lead, serial number [id number] was inserted via the sheath, manipulated into the left ventricular chamber and its septal position was finalized. Parameters to the program system analyzer and ultimately through the device are as follows, right ventricular threshold is 0.5 V at 0.4 msec and a sensing of 3.9 mV, program sensitivity 0.9 mV. Using retained access, the second guidewire was put through the 9-Czech SafeSheath and 7-Czech SafeSheath was then inserted without difficulty over the second wire. The right atrial lead, which is a Medtronic 5076 Capsurefix lead, serial number [id number] was inserted via the sheath and manipulated into the right atrial appendage again without difficulty. Parameters on this lead through the program system analyzer and ultimately through the device are as follows, threshold is 0.75 V at 0.4 msec at a current of 1.6 mA. Lead impendence is within normal limits at 494 ohms. P wave measured 2.5 mV. Leads were then finalized in this position. Additional ligatures were applied to achieve hemostasis. A submuscular pocket was then made with blunt dissection electrocautery, irrigated with bacitracin solution. The lead system was then attached to the pulse generator, which is a Medtronic, the model is AMBREEN XT, this is a MRI safe device, serial [id number]. The lead system and device were then coiled and placed in the submuscular pocket, prior to that it was irrigated with bacitracin solution. A 2-0 silk sutures were applied to the oppose the muscle bellies of the deltoid and the pectoral muscles. The skin and facial layers were then closed using two layers of 2-0 Vicryl. A Mastisol and Steri-Strips were then applied for the topical closure. A small pressure dressing was then applied. The patient remained hemodynamically stable throughout with pacing at 60 beats per minute. Parameters on the device viewing are as follows; the patient programmed AAI to DDDR or MVP mode, low rate at 60, projecting rate is 120. PLAN: The patient should remain on telemetry. Postoperative checks, which include chest x-ray and 12-lead EKG will be ordered. If everything is within normal limits, the patient may be discharge perhaps as soon as tomorrow after postop checks. Thank you for allowing me to participate in the care of your patient. Please do not hesitate to call with further questions in regards to his care. Anam Lima MD cc: MD Adriano Andrade MD
[2018-03-19 00:24] VITALS: RESP 18
[2018-03-19 07:52] VITALS: PULSE 60; O2SAT 96
--- NOTE | 2018-03-19 08:53 | CP.PCM.DIS ---
Provider - Provider Date of Admission: 03/16/18 11:49 Attending physician: Adriano Reilly MD Primary care physician: Aleks Holden Consults: Cardio: DR Charles EP : Dr Lima Time Spent in preparation of Discharge (in minutes): 30 Diagnosis - Discharge Diagnosis (1) Sick sinus syndrome Status: Acute (2) S/P cardiac pacemaker procedure Status: Acute (3) HTN (hypertension) Status: Chronic (4) DVT prophylaxis Status: Acute Hospital Course - Lab Results Lab Results: Most Recent Lab Values WBC 4.6 K/uL (4.8-10.8) L 03/18/18 05:30 RBC 4.63 Mil/uL (4.40-5.90) 03/18/18 05:30 Hgb 13.7 g/dL (12.0-18.0) 03/18/18 05:30 Hct 40.8 % (35.0-51.0) 03/18/18 05:30 MCV 88.3 fl (80.0-94.0) 03/18/18 05:30 MCH 29.7 pg (27.0-31.0) 03/18/18 05:30 MCHC 33.6 g/dL (33.0-37.0) 03/18/18 05:30 RDW 13.5 % (11.5-14.5) 03/18/18 05:30 Plt Count 229 K/uL (130-400) 03/18/18 05:30 MPV 8.4 fl (7.2-11.7) 03/16/18 05:00 Neut % (Auto) 38.1 % (50.0-75.0) L 03/16/18 05:00 Lymph % (Auto) 51.1 % (20.0-40.0) H 03/16/18 05:00 [place] % (Auto) 8.5 % (0.0-10.0) 03/16/18 05:00 Eos % (Auto) 1.7 % (0.0-4.0) 03/16/18 05:00 Baso % (Auto) 0.6 % (0.0-2.0) 03/16/18 05:00 Neut # (Auto) 1.9 K/uL (1.8-7.0) 03/16/18 05:00 Lymph # (Auto) 2.6 K/uL (1.0-4.3) 03/16/18 05:00 [place] # (Auto) 0.4 K/uL (0.0-0.8) 03/16/18 05:00 Eos # (Auto) 0.1 K/uL (0.0-0.7) 03/16/18 05:00 Baso # (Auto) 0.0 K/uL (0.0-0.2) 03/16/18 05:00 PT 12.4 Seconds (9.8-13.1) 03/18/18 05:30 INR 1.1 (0.9-1.2) 03/18/18 05:30 APTT 30.5 Seconds (25.6-37.1) 03/18/18 05:30 Sodium 139 mmol/l (132-148) 03/16/18 02:53 Potassium 3.7 MMOL/L (3.6-5.0) 03/16/18 02:53 Chloride 101 mmol/L (98-107) 03/16/18 02:53 Carbon Dioxide 26 mmol/L (22-30) 03/16/18 02:53 Anion Gap 16 (10-20) 03/16/18 02:53 BUN 23 mg/dl (9-20) H 03/16/18 02:53 Creatinine 0.9 mg/dl (0.8-1.5) 03/16/18 02:53 Est GFR ( Amer) > 60 03/16/18 02:53 Est GFR (Non-Af Amer) > 60 03/16/18 02:53 POC Glucose (mg/dL) 84 mg/dL (65-110) 03/15/18 11:51 Random Glucose 109 mg/dL (75-110) 03/16/18 02:53 Calcium 9.1 mg/dL (8.4-10.2) 03/16/18 02:53 Phosphorus 3.1 mg/dl (2.5-4.5) 03/15/18 13:00 Magnesium 2.0 MG/DL (1.6-2.3) 03/15/18 13:00 Total Bilirubin 1.1 mg/dl (0.2-1.3) 03/15/18 13:00 AST 28 U/L (17-59) 03/15/18 13:00 ALT 40 U/L (21-72) 03/15/18 13:00 Alkaline Phosphatase 66 U/L (38-126) 03/15/18 13:00 Troponin I < 0.0120 ng/mL (0.00-0.120) 03/16/18 02:53 Total Protein 7.4 G/DL (6.3-8.2) 03/15/18 13:00 Albumin 4.4 g/dL (3.5-5.0) 03/15/18 13:00 Globulin 3.0 gm/dL (2.2-3.9) 03/15/18 13:00 Albumin/Globulin Ratio 1.4 (1.0-2.1) 03/15/18 13:00 Triglycerides 268 mg/DL (0-149) H 03/16/18 02:53 Cholesterol 194 mg/dL (0-199) 03/16/18 02:53 LDL Cholesterol Direct 105 mg/dL (0-129) 03/16/18 02:53 HDL Cholesterol 36 MG/DL (30-70) 03/16/18 02:53 TSH 3rd Generation 1.11 mIU/ML (0.46-4.68) 03/16/18 02:53 Urine Color Yellow (YELLOW) 03/17/18 18:00 Urine Clarity Clear (Clear) 03/17/18 18:00 Urine pH 5.0 (5.0-8.0) 03/17/18 18:00 Ur Specific [place] 1.014 (1.003-1.030) 03/17/18 18:00 Urine Protein Negative mg/dL (NEGATIVE) 03/17/18 18:00 Urine Glucose (UA) Neg mg/dL (Normal) 03/17/18 18:00 Urine Ketones Negative mg/dL (NEGATIVE) 03/17/18 18:00 Urine Blood Negative (NEGATIVE) 03/17/18 18:00 Urine Nitrate Negative (NEGATIVE) 03/17/18 18:00 Urine Bilirubin Negative (NEGATIVE) 03/17/18 18:00 Urine Urobilinogen 0.2-1.0 mg/dL (0.2-1.0) 03/17/18 18:00 Ur Leukocyte Esterase Neg Adriana/uL (Negative) 03/17/18 18:00 Urine RBC (Auto) < 1 /hpf (0-3) 03/17/18 18:00 Urine Microscopic WBC 1 /hpf (0-5) 03/17/18 18:00 Ur Squamous Epith Cells < 1 /hpf (0-5) 03/17/18 18:00 - Hospital Course Hospital Course: 57y Male pt with hx of HTN , Hyperlipidemia , was sent in by his PMD to the ED due to Bradycardia. His HR was in the 30's on Tele monitoring. Cardio consulted - Dr Caro Charles rec EP consulted. Dr Lima placed Pacemaker. Post op CXR ; no Pneumothorax. Post op EKG : Paced rhythm 60 . (1) Sick sinus syndrome S/P cardiac pacemaker procedure Pt's HR was in the 30's EP consulted - Dr Lima - Pacemaker placed Received IV Ancef- will d/c home on PO Keflex Shoulder immobilizer for now Pain mgt cleared by Dr Lima for discharge (2) HTN (hypertension) Status: Chronic cont Vasotec 3. Hyperlipidemia cont statin (3) DVT prophylaxis Status: Acute Lovenox Discharge Exam - Head Exam Head Exam: ATRAUMATIC, NORMAL INSPECTION, NORMOCEPHALIC - Eye Exam Eye Exam: EOMI, Normal appearance, PERRL Pupil Exam: NORMAL ACCOMODATION - ENT Exam ENT Exam: Mucous Membranes Moist, Normal External Ear Exam - Neck Exam Neck exam: Full Rom - Respiratory Exam Respiratory Exam: NORMAL BREATHING PATTERN. absent: Rales, Respiratory Distress - Cardiovascular Exam Cardiovascular Exam: REGULAR RHYTHM, +S1, +S2 Additional comments: left Pacemaker - GI/Abdominal Exam GI & Abdominal Exam: Normal Bowel Sounds, Soft. absent: Tenderness - Extremities Exam Extremities exam: full ROM, normal capillary refill, normal inspection, pedal pulses present - Back Exam Back exam: FULL ROM. absent: CVA tenderness (L), CVA tenderness (R) - Neurological Exam Neurological exam: Alert, CN II-XII Intact, Normal Gait, Oriented x3, Reflexes Normal - Psychiatric Exam Psychiatric exam: Normal Affect, Normal Mood - Skin Skin Exam: Dry, Normal Color, Warm Discharge Plan - Discharge Medications Prescriptions: Cephalexin [cephalexin] 500 mg PO TID #9 cap - Follow Up Plan Condition: GOOD Disposition: HOME/ ROUTINE Instructions: Bradycardia, Chest Pain, Pacemaker Insertion (DC) Additional Instructions: ff up with PMD sergio ff up with Dr Charles in 1 wk ff up with Dr Lima in 1 wk Referrals: [facility] [Outside] Anam Lima MD [Staff Provider] - Clarence Charles MD [Family Provider] -
[2018-03-19] MEDS: Pantoprazole 40 mg EC Tab PO SCH (09:21)
--- NOTE | 2018-03-19 10:26 | CARD ---
APPROVED REPORT EXAM: Two-dimensional and M-mode echocardiogram with Doppler and color Doppler. Other Information Quality : GoodRhythm : Bradycardia INDICATION Abnormal EKG/Arrhythmia 2D DIMENSIONS IVSd1.41 (0.7-1.1cm)LVDd6.05 (3.9-5.9cm) LVOT Diameter2.32 (1.8-2.4cm)PWd1.20 (0.7-1.1cm) IVSs1.34 (0.8-1.2cm)LVDs5.62 (2.5-4.0cm) FS (%) 7.1 %PWs1.37 (0.8-1.2cm) M-Mode DIMENSIONS Left Atrium (MM)4.47 (2.5-4.0cm)IVSd1.09 (0.7-1.1cm) Aortic Root3.59 (2.2-3.7cm)LVDd6.59 (4.0-5.6cm) Aortic Cusp Exc.1.91 (1.5-2.0cm)PWd1.06 (0.7-1.1cm) IVSs1.38 cmFS (%) 34 % LVDs4.38 (2.0-3.8cm)PWs1.84 cm Mitral Valve MV E Rboiihji49.2cm/sMV DECEL [id number] A Iolmdunj81.0cm/s MV PPQ99wmX/A ratio1.4MVA (PHT)3.02cm2 TDI Lateral E' Peak V9.04cm/sMedial E' Peak V7.33cm/sE/Lateral E'6.4 E/Medial E'7.9 LEFT VENTRICLE The left ventricle is normal size. There is mild concentric left ventricular hypertrophy. Left ventricle systolic function is mildly to moderately impaired. The Ejection Fraction is 40-45%. There is mild global hypokinesis Transmitral Doppler flow pattern is Grade I-abnormal relaxation pattern. No left ventricle thrombus noted on this study. There is no ventricular septal defect visualized. There is no left ventricular aneurysm. There is no mass noted in the left ventricle. RIGHT VENTRICLE The right ventricle is normal size. There is normal right ventricular wall thickness. The right ventricular systolic function is normal. ATRIA The left atrium size is normal. The right atrium size is normal. The interatrial septum is intact with no evidence for an atrial septal defect. AORTIC VALVE The aortic valve is normal in structure. No aortic regurgitation is present. There is no aortic valvular stenosis. There is no aortic valvular vegetation. MITRAL VALVE The mitral valve is normal in structure. There is no evidence of mitral valve prolapse. There is no mitral valve stenosis. There is no mitral valve regurgitation noted. TRICUSPID VALVE The tricuspid valve is normal in structure. There is no tricuspid valve regurgitation noted. There is no tricuspid valve prolapse or vegetation. There is no tricuspid valve stenosis. PULMONIC VALVE The pulmonary valve is normal in structure. There is no pulmonic valvular regurgitation. There is no pulmonic valvular stenosis. GREAT VESSELS The aortic root is normal in size. The ascending aorta is normal in size. The IVC is normal in size and collapses >50% with inspiration. PERICARDIAL EFFUSION The pericardium appears normal. There is no pleural effusion. <Conclusion> Mild to Moderately Reduced LV systolic function LVEF 40-45% Mild Global Hypokinesis
[2018-03-19] MEDS ORDERED: ceFAZolin 1 GM in Sodium Chloride 0.9% 100 ML IVPB ONE (11:00)
[2018-03-19 11:50] VITALS: BP 136/79; TEMP 98.7
--- NOTE | 2018-03-20 12:24 | CARD ---
APPROVED REPORT EKG Measurement Heart [id number] <Conclusion> Atrial-paced rhythm Incomplete right bundle branch block Abnormal ECG
== END 2018-03-19 13:30 | disposition home or self-care (01) | DRG 244 ==
LOC: H.ER 11:25 → H.ERHOLD 14:46 → H.TEL 16:48 → OBSVTOIN 03-16 11:49 → H.TEL 03-18 10:57
PROC: 02H63JZ Insertion of Pacemaker Lead into Right Atrium, Percutaneous Approach (ICD-10-PCS; 2018-03-18)
PROC: 02HK3JZ Insertion of Pacemaker Lead into Right Ventricle, Percutaneous Approach (ICD-10-PCS; 2018-03-18)
PROC: 0JH606Z Insertion of Pacemaker, Dual Chamber into Chest Subcutaneous Tissue and Fascia, Open Approach (ICD-10-PCS; principal; 2018-03-18 07:45)
DX: I49.5 Sick sinus syndrome (principal); I10 Essential (primary) hypertension; E78.00 Pure hypercholesterolemia, unspecified; E78.5 Hyperlipidemia, unspecified